=== PATIENT | male | born 1995 | race African-American/Black ===

== ENCOUNTER 2020-04-23 11:01 | Emergency (ER) | payer BC, MEDICAID ==
[~2020-04-23] VITALS: Ht 175.3 cm; Wt 136.0 kg
[2020-04-23] MEDS ORDERED: IBUPROFEN 600MG TABLET PO ONE (11:45)
[2020-04-23 13:11] VITALS: BP 138/77
== END 2020-04-23 13:41 | disposition home or self-care (01) ==
LOC: ER 11:01
DX: R07.89 Other chest pain (principal); M25.561 Pain in right knee; J45.909 Unspecified asthma, uncomplicated; V49.9XXA Car occupant (driver) (passenger) injured in unspecified traffic accident, initial encounter; Y93.89 Activity, other specified; Y92.89 Other specified places as the place of occurrence of the external cause; Y99.8 Other external cause status
CPT/HCPCS: 71045; 73560; 99284